=== PATIENT | female | born 1950 | race Caucasian/White ===

== ENCOUNTER 2017-11-07 05:48 | Emergency (ER) | payer MEDICARE, OTHER ==
[2017-11-07] MEDS ORDERED: NORMAL SALINE 1000 ML 1,000 ML IV ONE (06:19)
[2017-11-07] MEDS ORDERED: ONDANSETRON HCL INJ/PF 4 MG/2 ML SDV IV ONE (06:19)
[2017-11-07] MEDS ORDERED: KETOROLAC TROMETHAMINE INJ/PF 30 MG/1 ML SDV IV ONE (06:19)
--- NOTE | 2017-11-07 06:23 | ER Document Report ---
ED General - General Chief Complaint: Flank Pain Stated Complaint: RIGHT SIDE PAIN Time Seen by Provider: 11/07/17 06:12 Notes: 67-year-old female presents to the ER with sudden onset of right flank pain starting yesterday. She describes as a dull and aching pain in her right flank. Nonradiating. She denies any hematuria or dysuria. Stated she did not have any nausea vomiting so she took a tramadol at about 4 AM on an empty stomach and she had one episode of emesis afterwards. However she denies any nausea now. Food does not make the discomfort better or worse she denies any right upper quadrant abdominal pain. Denies chest pain denies cough denies fever denies hemoptysis denies gland swelling. She denies any falls or trauma. Has seen no rash or blisters on her skin around the area with pain. She describes the pain is mild and is worse with movement. TRAVEL OUTSIDE OF THE [place] IN LAST 30 DAYS: No - Related Data Allergies/Adverse Reactions: No Known Allergies Allergy (Verified 11/07/17 05:48) Past Medical History - Social History Smoking Status: Never Smoker Chew tobacco use (# tins/day): No Frequency of alcohol use: None Drug Abuse: None Family History: Reviewed & Not Pertinent Patient has suicidal ideation: No Patient has homicidal ideation: No - Past Medical History Cardiac Medical History: Reports: Hx Hypertension Renal/ Medical History: Denies: Hx Peritoneal Dialysis Past Surgical History: Reports: Hx Hysterectomy Review of Systems - Review of Systems Cardiovascular: denies: Chest pain, Dyspnea Respiratory: denies: Cough, Short of breath Gastrointestinal: Nausea, Vomiting. denies: Abdominal pain, Diarrhea, Constipation, Blood in vomit, Black stools, Rectal bleeding Genitourinary: denies: Dysuria, Frequency, Hematuria Musculoskeletal: Back pain Skin: denies: Lesions, Rash -: Yes All other systems reviewed and negative Physical Exam - Vital signs Vitals: Temp Pulse Resp BP Pulse Ox 97.6 F 76 16 172/79 H 96 11/07/17 05:52 11/07/17 05:52 11/07/17 05:52 11/07/17 05:52 11/07/17 05:52 - Notes Notes: GENERAL_APPEARANCE: well_nourished, alert, cooperative VITALS: reviewed, see vital signs table. HEAD: no_swelling\tenderness on the head. EYES: conjunctiva_clear. NOSE: no_nasal_discharge. MOUTH: (-)decreased moisture. THROAT: no_tonsilar_inflammation, no_airway_obstruction. no_lymphadenopathy NECK: supple, no_neck_tenderness, (-)thyromegaly. BACK: Right CVA back tenderness, no crepitus no subcutaneous emphysema, no vesicles noted CHEST_WALL: no_chest_tenderness. LUNGS: no_wheezing, no_rales, no_rhonchi, (-)accessory muscle use, good air exchange bilateral. HEART: normal_rate, normal_rhythm, normal_S1, normal_S2, (-)S3, (-)S4, no_ murmur, no_rub. ABDOMEN: normal_BS, soft, no_abd_tenderness, (-)guarding, (-)rebound, no_ organomegaly, no_abd_masses. EXTREMITIES:good pulses in all_extremities, no_swelling\tenderness in the extremities, no_edema. SKIN: warm, dry, good_color, no_rash. MENTAL_STATUS: speech_clear, oriented_X_3, normal_affect, responds_ appropriately to questions. Course - Re-evaluation Re-evalutation: 11/07/17 06:22 67-year-old female presents with right-sided flank pain. Patient has no right upper quadrant pain. Guzmán sign negative. Patient's abdomen is soft and supple on exam. There is some right CVA tenderness. Will get an evaluation to assess for pyelonephritis versus kidney stone. There are no vesicles noted on inspection of the skin. However shingles can usually cause pain before there is any eruption of skin lesions. I spoke with her about this. There is no history of trauma or anything to suggest any kind of broken ribs. We will get a chest x-ray to assess for any basal pneumonias. However the patient does not have any cough or infectious symptoms. 11/07/17 09:37 Abdomen/Pelvis CT 11/07/17 06:18 IMPRESSION: 1. Marked right hydronephrosis due to a distal ureteral stone which measures at least 8 mm transverse dimension. Chest X-Ray 11/07/17 06:19 IMPRESSION: Moderate cardiomegaly. No acute findings Patient is an 8 mm stone near the distal end of the right urethra. Will place her on Flomax. There is no coexisting infection. She already sees [facility] medicine and refer her to [facility] urology. - Vital Signs Vital signs: Temp Pulse Resp BP Pulse Ox 97.6 F 76 16 172/79 H 97 11/07/17 05:52 11/07/17 05:52 11/07/17 05:52 11/07/17 05:52 11/07/17 07:00 - Laboratory Result Diagrams: 11/07/17 06:36 11/07/17 06:36 Laboratory results interpreted by me: 11/07/17 11/07/17 06:19 06:36 Glucose 129 H Total Protein 8.4 H Urine Blood SMALL H Discharge - Discharge Clinical Impression: Kidney stone on right side Condition: Good Disposition: HOME, SELF-CARE Additional Instructions: You have an 8 mm kidney stone. He will likely need to see urology Dr. Horta or Dr. Plummer from [facility] urology. Please call for an appointment. Prescriptions: Ondansetron [Zofran Odt 4 mg Tablet] 1 - 2 tab PO Q4HP PRN #10 tab.rapdis PRN Reason: Hydrocodone/Acetaminophen [Staples 5-325 Tablet] 1 each PO QID PRN #15 tablet PRN Reason: Tamsulosin HCl [Flomax 0.4 mg Cap.sr] 0.4 mg PO DAILY #7 cap.sr.24h Referrals: KISHAN PLUMMER [NO LOCAL MD] - Follow up as needed
[2017-11-07 06:41] LABS: APPEARANCE,URINE SLIGHTLY-CLOUDY; BILIRUBIN,URINE NEGATIVE (NEGATIVE); COLOR,URINE STRAW; GLUCOSE, URINE NEGATIVE (NEGATIVE); KETONES,URINE NEGATIVE (NEGATIVE); LEUKOCYTE ESTERASE,URINE NEGATIVE (NEGATIVE); NITRITE,URINE NEGATIVE (NEGATIVE); PROTEIN,URINE NEGATIVE (NEGATIVE); URINE SPECIFIC GRAVITY 1.014; UROBILINOGEN,URINE NEGATIVE mg/dL (<2.0)
[2017-11-07 07:01] LABS: ABSOLUTE BASOPHILS # (AUTO) 0.1 10^3/uL (0.0-0.2); ABSOLUTE EOSINOPHILS # (AUTO) 0.1 10^3/uL (0.0-0.6); ABSOLUTE LYMPHOCYTES (AUTO) 1.1 10^3/uL (0.5-4.7); ABSOLUTE MONOCYTES (AUTO) 0.4 10^3/uL (0.1-1.4); ABSOLUTE NEUT (AUTO) 5.4 10^3/uL (1.7-8.2); BASOPHILS % (AUTO) 0.8 % (0-2); HEMOGLOBIN 12.6 g/dL (12.0-15.5); LYMPHOCYTES % (AUTO) 15.5 % (13-45); MEAN CORPUSCULAR HGB CONC 34.1 g/dL (32.0-36.0); MEAN CORPUSCULAR VOLUME 88 fl (80-97); MONOCYTES % (AUTO) 6.1 % (3-13); PLATELET COUNT 276 10^3/uL (150-450); RED BLOOD COUNT 4.21 10^6/uL (3.72-5.28); RED CELL DISTRIBUTION WIDTH 13.8 % (11.5-14.0); SEGMENTED NEUTROPHILS % (AUTO) 76.6 % (42-78); TOTAL CELLS COUNTED % (AUTO) 100 %; WHITE BLOOD COUNT 7.1 10^3/uL (4.0-10.5)
[2017-11-07 07:15] LABS: ALANINE AMINOTRANSFERASE 27 U/L (9-52); ALBUMIN 4.6 g/dL (3.5-5.0); ALKALINE PHOSPHATASE 96 U/L (38-126); ANION GAP 12 (5-19); ASPARTATE AMINO TRANSFERASE 26 U/L (14-36); BILIRUBIN,DIRECT 0.3 mg/dL (0.0-0.4); BILIRUBIN,TOTAL 0.6 mg/dL (0.2-1.3); BLOOD UREA NITROGEN 15 mg/dL (7-20); CALCIUM 9.6 mg/dL (8.4-10.2); CARBON DIOXIDE 25 mmol/L (22-30); CHLORIDE 102 mmol/L (98-107); GLUCOSE 129 mg/dL (75-110); LIPASE 31.7 U/L (23-300); POTASSIUM 4.1 mmol/L (3.6-5.0); SODIUM 138.9 mmol/L (137-145); TOTAL PROTEIN 8.4 g/dL (6.3-8.2)
--- NOTE | 2017-11-07 08:35 | RADIOLOGY REPORT (SQ) ---
EXAM DESCRIPTION: CT ABD/PELVIS NO ORAL OR IV COMPLETED DATE/TIME: 11/07/2017 8:04 am REASON FOR STUDY: Right Flank Pain COMPARISON: None. TECHNIQUE: CT scan of the abdomen and pelvis performed without intravenous or oral contrast. Images reviewed with lung, soft tissue, and bone windows. Reconstructed coronal and sagittal MPR images revi ewed. All images stored on PACS. All CT scanners at this facility use dose modulation, iterative reconstruction, and/or weight based d osing when appropriate to reduce radiation dose to as low as reasonably achievable (ALARA). [facility]: Dose Right [facility]: CareDose [facility]: Dose Right [facility]: Teradose 4D [facility]: Smart [place] RADIATION DOSE: CT Rad equipment meets quality standard of care and radiation dose reduction techniq ues were employed. CTDIvol: 19.4 mGy. DLP: 930 mGy-cm.mGy. LIMITATIONS: None. FINDINGS: LOWER CHEST: No significant findings. No nodules or infiltrates. NON-CONTRASTED LIVER, SPLEEN, ADRENALS: Liver and spleen unremarkable. Relatively low density nodule s in the left adrenal, subcentimeter. Consistent with adenomas. PANCREAS: No masses. No peripancreatic inflammatory changes. GALLBLADDER: No identified stones by CT criteria. No inflammatory changes to suggest cholecystitis. RIGHT KIDNEY AND URETER: Marked right hydronephrosis with dilatation of the proximal ureter into the upper pelvis. Here, there is a sizable stone which measures at least 8 mm transverse dimension. Lorrie ge 55/83 axial. Hounsfield units at approximately 0900 hours. Minimal additional inferior pole neph rolithiasis. LEFT KIDNEY AND URETER: No solid masses. No significant calcification. No hydronephrosis or hydrouret er. AORTA AND RETROPERITONEUM: No aneurysm. No retroperitoneal masses or adenopathy. BOWEL AND PERITONEAL CAVITY: No obvious masses or inflammatory changes. No free fluid. APPENDIX: Normal. PELVIS, BLADDER, AND ABDOMINAL WALL:No abnormal masses. No free fluid. Bladder normal. BONES: No significant findings. OTHER: No other significant finding. IMPRESSION: 1. Marked right hydronephrosis due to a distal ureteral stone which measures at least 8 mm transverse dimension. TECHNICAL DOCUMENTATION: JOB ID: [id number] Quality ID # [id number]: Final reports with documentation of one or more dose reduction techniques (e.g., Au tomated exposure control, adjustment of the mA and/or kV according to patient size, use of iterative reconstruction technique) 2010 [employer]- All Rights Reserved Reading location - IP/workstation name: [email or web address]
--- NOTE | 2017-11-07 08:37 | RADIOLOGY REPORT (SQ) ---
EXAM DESCRIPTION: CHEST 2 VIEWS COMPLETED DATE/TIME: 11/07/2017 7:49 am REASON FOR STUDY: right flank pain COMPARISON: None. EXAM PARAMETERS: NUMBER OF VIEWS: two views TECHNIQUE: Digital Frontal and Lateral radiographic views of the chest acquired. RADIATION DOSE: NA LIMITATIONS: none FINDINGS: LUNGS AND PLEURA: No opacities, masses or pneumothorax. No pleural effusion. MEDIASTINUM AND HILAR STRUCTURES: No masses or contour abnormalities. HEART AND VASCULAR STRUCTURES: Moderate cardiomegaly BONES: No acute findings. HARDWARE: None in the chest. OTHER: No other significant finding. IMPRESSION: Moderate cardiomegaly. No acute findings TECHNICAL DOCUMENTATION: JOB ID: [id number] [employer]- All Rights Reserved Reading location - IP/workstation name: [email or web address]
[2017-11-07 10:02] VITALS: BP 158/79
== END 2017-11-07 10:01 | disposition home or self-care (01) ==
LOC: ER 05:48
DX: N13.2 Hydronephrosis with renal and ureteral calculous obstruction (principal); R10.9 Unspecified abdominal pain; R11.2 Nausea with vomiting, unspecified; M54.9 Dorsalgia, unspecified; I10 Essential (primary) hypertension
CPT/HCPCS: 99284; 96374; 96375; 36415; 83690; 85025; 80053; 81001; 71046; 74176; J1885; J2405

== ENCOUNTER 2020-01-07 18:50 | Emergency (ER) | payer MEDICARE, OTHER ==
[2020-01-07] MEDS ORDERED: DIPH/PERTUSS(ACELL)/TETANUS VAC/PF 0.5 ML SYR (>=10YO) IM ONE (20:04)
--- NOTE | 2020-01-07 20:06 | ER Document Report ---
ED Medical Screen (RME) - General Chief Complaint: Leg Pain Stated Complaint: LOWER LEG PAIN Time Seen by Provider: 01/07/20 20:01 Mode of Arrival: Wheelchair Information source: Patient Notes: HPI; 69-year-old female presents emergency room with a laceration to her left mcfadden. Patient states she was outside when she lost her balance fell cutting her left mcfadden on her concrete steps. Denies any other trauma or injuries. Denies any head trauma head injury. Denies any blood thinners. Unknown last tetanus shot. Bleeding is controlled. PE: Alert and oriented x3. Patient with a 8 cm laceration into the muscle noted to her left mcfadden. Unable to do full assessment in triage. left pedal pulse. Capillary refill less than 3 seconds. Bleeding is controlled. Dressing in place patient refused any pain medication in triage I have greeted and performed a rapid initial assessment of this patient. A comprehensive ED assessment and evaluation of the patient, analysis of test r esults and completion of the medical decision making process will be conducted by additional ED providers. I have specifically instructed the patient or family members with the patient to immediately return to any nursing staff should anything change in the patient's condition or with their chief complaint. TRAVEL OUTSIDE OF THE [place] IN LAST 30 DAYS: No - Related Data Allergies/Adverse Reactions: No Known Allergies Allergy (Verified 11/07/17 05:48) Past Medical History - Past Medical History Cardiac Medical History: Reports: Hx Hypertension Renal/ Medical History: Denies: Hx Peritoneal Dialysis Past Surgical History: Reports: Hx Hysterectomy Physical Exam - Vital signs Vitals: Temp Pulse Resp BP Pulse Ox 98.6 F 99 18 156/81 H 98 01/07/20 19:50 01/07/20 19:50 01/07/20 19:50 01/07/20 19:50 01/07/20 19:50 Course - Vital Signs Vital signs: Temp Pulse Resp BP Pulse Ox 98.6 F 99 18 156/81 H 98 01/07/20 19:50 01/07/20 19:50 01/07/20 19:50 01/07/20 19:50 01/07/20 19:50
--- NOTE | 2020-01-07 20:45 | RADIOLOGY REPORT (SQ) ---
EXAM DESCRIPTION: XR TIBIA FIBULA 2 VIEWS COMPLETED DATE/TME: 01/07/2020 20:04 CLINICAL HISTORY: 69 years, Female, injury COMPARISON: None. NUMBER OF VIEWS: 4 TECHNIQUE: Frontal and lateral radiographs were obtained LIMITATIONS: None. FINDINGS: Diffuse soft tissue swelling is noted about the left lower leg. A superimposed soft tissue defect is suspected given the presence of irregularity about the soft tissues along the lateral aspect of the lower leg. Soft tissue swelling is evident about the medial and lateral aspects of the ankle. Partially imaged is moderate tricompartmental knee joint osteoarthrosis, designated by joint space narrowing and marginal osteophyte formation. Otherwise, no definite acute fracture or dislocation is evident. IMPRESSION: Soft tissue swelling/suspected defect located along the lateral aspect of the lower leg. No underlying acute fracture or dislocation. copyright 2010 [employer]- All Rights Reserved
[2020-01-08] MEDS ORDERED: LIDOCAINE 1%/EPINEPHRINE INJ 20 ML VIAL INJ ONE (03:10)
[2020-01-08] MEDS ORDERED: HYDROCODONE/ACETAMINOPHEN 5-325 MG TABLET PO ONE (03:13)
[2020-01-08] MEDS ORDERED: AMOXICILLIN TR/POT CLAVULANATE 875-125 MG TAB PO ONE (05:15)
[2020-01-08] MEDS ORDERED: HYDROCODONE/ACETAMINOPHEN 5-325 MG (6 TAB/ER DISP) PO PRN (05:15)
--- NOTE | 2020-01-08 05:18 | ER Document Report ---
ED Extremity Problem, Lower - General Chief Complaint: Fall Injury Stated Complaint: LOWER LEG PAIN Time Seen by Provider: 01/07/20 20:01 Mode of Arrival: Wheelchair Notes: Patient is a 69-year-old female with past medical history of hypertension who presents emergency department with a laceration to the left side of her leg. Patient states that she lost her balance and ended up falling into step at her house. Patient denies hitting her head. Denies any loss of consciousness. She is does not take any blood thinners. She is not diabetic. Patient received her tetanus vaccine through triage. TRAVEL OUTSIDE OF THE [place] IN LAST 30 DAYS: No - Related Data Allergies/Adverse Reactions: No Known Allergies Allergy (Verified 11/07/17 05:48) Home Medications: Norvasc. Vit D3. Benazepril Past Medical History - General Information source: Patient - Social History Smoking Status: Never Smoker Chew tobacco use (# tins/day): No Frequency of alcohol use: None Drug Abuse: None Family History: Reviewed & Not Pertinent - Past Medical History Cardiac Medical History: Reports: Hx Hypertension Renal/ Medical History: Denies: Hx Peritoneal Dialysis Past Surgical History: Reports: Hx Hysterectomy Review of Systems - Review of Systems Notes: REVIEW OF SYSTEMS: CONSTITUTIONAL : Denies recent illness. Denies recent unintentional weight loss. Denies fever, chills, or sweats. EENT: Denies eye, ear, throat, or mouth pain, discharge, or symptoms. Denies nasal or sinus congestion. CARDIOVASCULAR: Denies chest pain. RESPIRATORY: Denies shortness of breath, cough, congestion, difficulty breathing, or wheezing. GASTROINTESTINAL: Denies nausea, vomiting, and diarrhea. Denies abdominal pain. Denies constipation. GENITOURINARY: Denies difficulty urinating, burning, blood in urine, urgency or frequency. MUSCULOSKELETAL: Denies neck and back pain. See HPI. SKIN: See HPI. HEMATOLOGIC : Denies easy bruising or bleeding. LYMPHATIC: Denies swollen, painful, enlarged glands. NEUROLOGICAL: Denies no numbness or tingling denies weakness. Denies headache. Denies altered mental status. Denies alteration in speech. PSYCHIATRIC: Denies stress, anxiety, alteration in sleep patterns, or depression. All other systems reviewed and negative. Physical Exam - Vital signs Vitals: Temp Pulse Resp BP Pulse Ox 98.6 F 99 18 156/81 H 98 01/07/20 19:50 01/07/20 19:50 01/07/20 19:50 01/07/20 19:50 01/07/20 19:50 - Notes Notes: PHYSICAL EXAMINATION: GENERAL: Appears well, healthy, well-nourished, no acute distress. HEAD: Normocephalic, atraumatic. EYES: PERRL, conjunctiva normal, all extraocular movements intact, sclera nonicteric ENT: Moist mucous membranes. NECK: Supple, no noticeable swelling, redness, rash. Normal range of motion. LUNGS: Equal breath sounds bilaterally and clear to auscultation. No wheezes rales or rhonchi. CARDIOVASCULAR: S1-S2, regular rate, regular rhythm. Radial pulses 2+, normal. ABDOMEN: Normoactive bowel sounds. Soft, nontender, no guarding, no rebound tenderness, and no masses palpated. EXTREMITIES: Normal strength and range of motion, no pitting or edema. No cyanosis. NEUROLOGICAL: Moves all extremities upon command. Strength 5/5 in all extremities. PSYCH: Normal mood, normal affect. SKIN: Warm, dry. 8 cm laceration noted to left lateral lower leg. Exposed muscle noted. Course - Re-evaluation Re-evalutation: 01/08/20 X-ray was negative for any acute fracture. Patient was sutured with 3 internal sutures and 27 external sutures. Patient tolerated procedure well. Dorsalis pedis and posterior tibial pulses are normal. Capillary refill less than 3 seconds. No arterial bleed noted. Patient will follow-up with primary care provider for suture removal in 1 week. She is in agreement with this plan. We will also start the patient on prophylactic antibiotic treatment, as the patient sustained her laceration outside. Offered the patient crutches and they refused . Follow-up precautions were given. Verbal discharge instructions were given to the patient. They verbalized understanding. They are stable for discharge. - Vital Signs Vital signs: Temp Pulse Resp BP Pulse Ox 98.6 F 90 16 130/80 H 98 01/08/20 05:06 01/08/20 05:06 01/08/20 05:06 01/08/20 05:06 01/08/20 05:06 Procedures - Laceration/Wound Repair Lateral Leg Wound length (cm): 8 Wound's Depth, Shape: Into muscle, Irregular Laceration pre-procedure: Sterile PPE donned, Shur-Clens applied Anesthetic type: 1% Lidocaine w/epi Volume Anesthetic (mLs): 20 Wound explored: Clean, No foreign body removed Irrigated w/ Saline (mLs): 250 Wound Debrided: Minimal Wound Repaired With: Sutures Suture Size/Type: 4:0, Nylon Number of Sutures: 27 Layer Closure?: Yes Deep Layer Suture Size/Type: 5:0, Chromic Number Deep Layer Sutures: 3 Post-procedure wound care: Sterile dressing applied Post-procedure NV exam normal: Yes Complications: No Adult Front & Back picture: 1 - 8 CM large laceration noted Discharge - Discharge Clinical Impression: Leg laceration Qualifiers: Encounter type: initial encounter Laterality: left Qualified Code(s): S81.812A - Laceration without foreign body, left lower leg, initial encounter Leg abrasion Qualifiers: Encounter type: initial encounter Laterality: left Qualified Code(s): S80.812A - Abrasion, left lower leg, initial encounter Condition: Stable Disposition: HOME, SELF-CARE Instructions: Antibiotic Ointment Protection ([facility]), Laceration Care ([facility]), Oral Narcotic Medication ([facility]), Prophylactic Antibiotic ([facility]), Soap Cleansing ([facility]), Tetanus Immunization Given ([facility]) Additional Instructions: Please return to your primary doctor, the ED, or an urgent care in 7 days for suture removal. Return immediately if you develop spreading redness around the wound, pus from the wound, worsening pain, or a fever of >100.4. Keep the area clean and dry. Wash gently with soap and water twice daily and cover with antibiotic ointment. Take the antibiotic to prevent infection. You can take the [place], pain medication, 1 tablet every 4-6 hours as needed for pain. Please do not drive or operate heavy machinery when on this medication. When you run out, change to Tylenol 1000 mg and ibuprofen 600 mg every 6 hours. Prescriptions: Amoxicillin/Potassium Clav [Augmentin 875-125 Tablet] 1 tab PO BID #14 tab
[2020-01-08 05:39] VITALS: BP 130/80
== END 2020-01-08 05:39 | disposition home or self-care (01) ==
LOC: ER 18:50
DX: S81.812A Laceration without foreign body, left lower leg, initial encounter (principal); S80.812A Abrasion, left lower leg, initial encounter; W10.9XXA Fall (on) (from) unspecified stairs and steps, initial encounter; Y92.009 Unspecified place in unspecified non-institutional (private) residence as the place of occurrence of the external cause; I10 Essential (primary) hypertension; Z90.710 Acquired absence of both cervix and uterus; Z23 Encounter for immunization
CPT/HCPCS: 99283; 73590; 90715; 12034; J3490 ×2; A9270 ×2

== ENCOUNTER → 2020-03-16 | Outpatient (CLI) | payer MEDICARE, OTHER ==
[2020-03-16 14:14] LABS: ABSOLUTE BASOPHILS # (AUTO) 0.1 10^3/uL (0.0-0.2); ABSOLUTE EOSINOPHILS # (AUTO) 0.2 10^3/uL (0.0-0.6); ABSOLUTE MONOCYTES (AUTO) 0.6 10^3/uL (0.1-1.4); ABSOLUTE NEUT (AUTO) 3.6 10^3/uL (1.7-8.2); BASOPHILS % (AUTO) 1.4 % (0-2); EOSINOPHILS % (AUTO) 2.6 % (0-6); HEMOGLOBIN 12.9 g/dL (12.0-15.5); LYMPHOCYTES % (AUTO) 30.9 % (13-45); MEAN CORPUSCULAR HEMOGLOBIN 29.7 pg (27.0-33.4); MEAN CORPUSCULAR HGB CONC 33.2 g/dL (32.0-36.0); MEAN CORPUSCULAR VOLUME 90 fl (80-97); PLATELET COUNT 283 10^3/uL (150-450); RED BLOOD COUNT 4.35 10^6/uL (3.72-5.28); RED CELL DISTRIBUTION WIDTH 14.3 % (11.5-14.0); SEGMENTED NEUTROPHILS % (AUTO) 56.1 % (42-78); TOTAL CELLS COUNTED % (AUTO) 100 %; WHITE BLOOD COUNT 6.3 10^3/uL (4.0-10.5)
[2020-03-16 14:42] LABS: ALBUMIN 4.4 g/dL (3.5-5.0); ALKALINE PHOSPHATASE 96 U/L (38-126); ANION GAP 7 (5-19); ASPARTATE AMINO TRANSFERASE 19 U/L (14-36); BILIRUBIN,DIRECT 0.3 mg/dL (0.0-0.4); BILIRUBIN,TOTAL 0.6 mg/dL (0.2-1.3); BLOOD UREA NITROGEN 17 mg/dL (7-20); CALCIUM 10.2 mg/dL (8.4-10.2); CARBON DIOXIDE 29 mmol/L (22-30); CHLORIDE 100 mmol/L (98-107); GLUCOSE 92 mg/dL (75-110); POTASSIUM 5.2 mmol/L (3.6-5.0); TOTAL PROTEIN 7.7 g/dL (6.3-8.2)
[2020-03-16 14:43] LABS: C-REACTIVE PROTEIN < 5.0 mg/L (<10.0)
[2020-03-16 14:58] LABS: ERYTHROCYTE SEDIMENTATION RATE 30 mm/hr (0-30)
== END ==
LOC: WC 11:46
PROVIDERS: ATTEND Nurse Practitioner Family
DX: E11.622 Type 2 diabetes mellitus with other skin ulcer (principal); L97.222 Non-pressure chronic ulcer of left calf with fat layer exposed
CPT/HCPCS: 36415; 80053; 83036; 85025; 85652; 86140

== ENCOUNTER → 2020-06-17 | Outpatient (CLI) | payer MEDICARE, OTHER ==
--- NOTE | 2020-06-18 08:43 | RADIOLOGY REPORT (SQ) ---
EXAM DESCRIPTION: VENOUS REFLUX IMAGES COMPLETED DATE/TIME: 06/17/2020 4:18 pm REASON FOR STUDY: LLE ULCER L97.822 NON-PRS CHRONIC ULCER OTH PRT L LOW LEG W FAT LAYER COMPARISON: None. TECHNIQUE: Multiple real-time grayscale sonographic images were obtained for evaluation of the right and left lower extremity. Doppler and duplex evaluation of the venous structures was performed. LIMITATIONS: None. FINDINGS: The right and left common femoral, superficial femoral, popliteal and infrapopliteal veins are patent with normal response to compression and augmentation maneuvers. Right greater saphenous vein: No reflux. Left greater saphenous vein: No reflux. OTHER: No solid or cystic masses or other abnormal findings. IMPRESSION: NORMAL STUDY. TECHNICAL DOCUMENTATION: JOB ID: [id number] 2010 [employer]- All Rights Reserved Reading location - IP/workstation name: [email or web address]
== END ==
LOC: SP 14:57
PROVIDERS: ATTEND Nurse Practitioner Family
DX: I87.312 Chronic venous hypertension (idiopathic) with ulcer of left lower extremity (principal); L97.822 Non-pressure chronic ulcer of other part of left lower leg with fat layer exposed
CPT/HCPCS: 93970